=== PATIENT | male | born 1930 | race Caucasian/White ===

== ENCOUNTER 2016-12-12 16:15 | Emergency (ER) | payer OTHER ==
[~2016-12-12] VITALS: Ht 182.9 cm; Wt 109.0 kg
[~2016-12-12 16:15] MED LIST: ACET-1256 PO; ASPEC81 PO; CHOL100010 PO; DICL1GEL12; DICL1GEL12 TOP; DOCU100C PO; DONE10TA12 PO; HYDR-5688 PO; LEUP1INJ INJ; LEUP30IN3; LISI-461 PO; MEMA1CAP7 PO; MULTCAP31 PO; OMEG10007 PO; ONDA4TAB10 SL; PRLSR20 PO; SIMV20TA2 PO; TPRSR50 PO; VITA1TAB4 PO; [UNRECOGNIZED DRUG - CODE]
[2016-12-12 16:21] VITALS: TEMP 36.9; Ht 182.9 cm; Wt 109.0 kg
--- NOTE | 2016-12-12 17:06 | EMERGENCY ROOM VISIT NOTE ---
History Report prepared by Jaciibeagle: Clemente Ponce Under the Supervision of: Dr. Lewis Zamorano M.D. First contact with patient: 16:48 Chief Complaint: FALL Stated Complaint: FALL. LACERATION TO BACK OF HEAD History of Present Illness The patient is an 86 year old male who presents to the Emergency Room via ALS after a fall that occurred prior to arrival. Per patient's , the patient was at his doctor's office. When the patient left the office, he was trying to walk down a few steps when the wind blew and knocked him off balance. His tried to hold him up, but was unable to prevent the fall. The patient hit his head during the fall. He complains of some discomfort at the back of his head where he has a laceration. The patient was incontinent after the fall. The patient has also been complaining of knee pain. He was supposed to get his knees x-rayed after his appointment this morning. However, he fell before he made it to the next appointment. Source of History: patient, spouse/significant other Onset: prior to arrival Position: head Associated Symptoms: + urinary symptoms (urinary incontinence) Note: Other associated symptoms: hit his head during fall, laceration to head, pain by back of head, knee pain Review of Systems All systems have been listed, reviewed, and are negative other than those previously mentioned. Please see Additional Medical History Sheet. Past Medical & Surgical Medical Problems: (1) Alzheimer's disease (2) Aortic stenosis (3) Atrial fibrillation (4) Pre-syncope (5) Prostate cancer Family History No pertinent family history Social History Smoking Status: Never Smoker Drug Use: none Marital Status: Occupation Status: employed Current/Historical Medications Scheduled Aspirin Enteric Coated (Ecotrin Or Generic), 81 MG PO DAILY Calcium & Phosphorus W/ Vitami (Calcium Gummies), 1 TAB PO DAILY Cholecalciferol (D 5000), 5,000 UNITS PO DAILY Donepezil Hydrochloride (Aricept), 10 MG PO HS Fish Oil ([employer]-3), 1-2 CAP PO DAILY Leuprolide Acetate (6 Month) (Lupron Depot), 1 DOSE INJ [id number] Lisinopril (Lisinopril), 10 MG PO QAM Memantine Hcl (Namenda Xr), 28 MG PO HS Metoprolol Succ (Toprol Xl) (Toprol-Xl), 50 MG PO BID Multiple Vitamins W/ Minerals (Multi Adult Gummies), 2 TABS PO DAILY Omeprazole (Prilosec), 20 MG PO DAILY Simvastatin (Zocor), 20 MG PO QPM Scheduled PRN Acetaminophen (Tylenol), 2 TAB PO Q6 PRN for Pain or Fever Diclofenac Sodium (Topical) (Voltaren 1% Top Gel), 1 APPLN TOP QID PRN for KNEE DISCOMFORT Docusate Sodium (Stool Softener), 100-200 MG PO HS PRN for Constipation Hydrocodone/Acetaminophen 5MG/325MG ([place] 5MG/325MG), 1 TAB PO TID PRN for unkn Allergies Coded Allergies: Clarithromycin (Verified Allergy, Intermediate, rash in mouth, 12/12/16) Physical Exam Vital Signs Date Time Temp Pulse Resp B/P Pulse Ox O2 Delivery O2 Flow Rate FiO2 12/12/16 19:40 80 16 194/96 97 Room Air 12/12/16 18:15 68 18 183/88 98 Room Air 12/12/16 16:21 36.9 69 20 198/85 93 Room Air Physical Exam GENERAL: Patient awake, alert, oriented x 3. Patient follows commands. Patient does not appear toxic. Patient is adequately hydrated and well- nourished. SKIN: No erythema, pallor, cyanosis or rash HEENT: 4 cm laceration to right occiput, pupils equal, reactive to light and accommodation. Ears normal. Oral cavity and posterior pharynx appear normal. Neck: Supple, nontender. No step-offs noted. LUNGS: Clear to auscultation. No wheezes, no rales, no rhonchi. HEART: Grade 3/6 systolic murmur noted. No gallops. No rubs ABDOMEN: Soft, nontender. EXTREMITIES: Old scar on left knee, moves both knees well. No pedal or pretibial edema. No calf or thigh tenderness. NEUROLOGIC: Cranial nerves II-XII within normal limits. No gross motor sensory function deficits. No hemotympanum, ferraro's sign or raccoon's sign. Medical Decision & Procedures ER Provider Diagnostic Interpretation: Radiology results as stated below per my review and radiologist interpretation: RIGHT KNEE 2 VIEWS CLINICAL HISTORY: Right knee pain. FINDINGS: AP and crosstable lateral views of the right knee are obtained. No prior studies are available for comparison at the time of dictation. The skeletal structures are osteopenic. There is no radiographic evidence of fracture. Advanced tricompartmental degenerative joint space narrowing is noted. There are large marginal osteophytes as well as patellar enthesophytes. A calcified fabella is observed. There is chondrocalcinosis of the medial and lateral compartments. A small joint effusion is identified. Soft tissues swelling is seen around the knee. There is advanced atherosclerotic calcification of the popliteal artery. IMPRESSION: 1. Soft tissue edema and joint effusion with no radiographic evidence of fracture. 2. Osteopenia, advanced arthritic change, and chondrocalcinosis as above. Electronically signed by: Dre Sanders M.D. 12/12/2016 7:10 PM Dictated Date/Time: 12/12/2016 7:08 PM LEFT KNEE 2 VIEWS CLINICAL HISTORY: Left knee pain. FINDINGS: AP and crosstable lateral views of the left knee are obtained. No prior studies are available for comparison at the time of dictation. The skeletal structures are osteopenic. There is no radiographic evidence of fracture. Advanced tricompartmental degenerative joint space narrowing is noted. There are large marginal osteophytes as well as patellar enthesophytes. A calcified fabella is observed. There is chondrocalcinosis of the medial and lateral compartments. No significant joint effusion is identified. Soft tissues swelling is seen around the knee. There is advanced atherosclerotic calcification of the popliteal artery. IMPRESSION: 1. Soft tissue swelling with no radiographic evidence of fracture. 2. Osteopenia, advanced arthritic change, and chondrocalcinosis as above. Electronically signed by: Dre Sanders M.D. 12/12/2016 7:11 PM Dictated Date/Time: 12/12/2016 7:[address] SCAN OF THE BRAIN WITHOUT IV CONTRAST CLINICAL HISTORY: Fall. Head injury. COMPARISON STUDY: CT of the brain dated 09/10/2015. TECHNIQUE: Unenhanced axial CT scan of the brain is performed from the vertex to the skull base. The examination is degraded by motion artifact. CT DOSE: 1285.67 mGy.cm FINDINGS: Brain parenchyma: There are age-related involutional changes noting mild subcortical and periventricular microangiopathic change. There is no hemorrhage, mass effect, or evidence of acute territorial ischemia by CT criteria. Yepez-white matter is preserved. No extra-axial fluid collection is seen. Ventricles, sulci, cisterns: Prominent secondary to involutional change. Intracranial vasculature: There is atherosclerotic calcification of the cavernous carotid and vertebral arteries. Calvarium: The skeletal structures are osteopenic. There is no depressed calvarial fracture. Soft tissues: There is a mild right parietal scalp contusion. There is also suboccipital scalp contusion. Sinuses and mastoids: The visualized paranasal sinuses are clear. The mastoid air cells are well pneumatized. Orbits: The bony orbits are grossly intact. IMPRESSION: 1. There is no hemorrhage, mass effect, or evidence of acute territorial ischemia by CT criteria. 2. Right parietal and occipital scalp contusions. No depressed calvarial fracture is seen. Electronically signed by: Dre Sanders M.D. 12/12/2016 6:07 PM Dictated Date/Time: 12/12/2016 6:[address] SCAN OF THE CERVICAL SPINE CLINICAL HISTORY: Trauma. Fall. COMPARISON STUDY: CT scan of cervical spine dated 08/19/2015. TECHNIQUE: CT scan of the cervical spine is performed from the skull base to the upper thoracic spine. Images are reviewed in the axial, sagittal, and coronal planes. IV contrast was not administered for this examination. CT DOSE: Reported separately under the concurrently performed CT scan of the brain. FINDINGS: Skeletal structures: The skeletal structures are osteopenic. There is no evidence of fracture or subluxation involving the cervical spine. Vertebral body height and alignment are maintained. There is straightening of the cervical lordosis. The odontoid process and lateral masses are intact. The atlantoaxial articulation is preserved noting productive degenerative change with bony sclerosis and narrowing of the interval. The spinous processes appear intact. There is advanced multilevel cervical spondylosis. Uncovertebral and facet arthropathy contribute to neural foraminal stenosis at most levels. Intervertebral discs: Advanced degenerative disc space narrowing is seen at C5-C6, C6-C7, and C7-T1. Central canal: Posterior disc osteophyte complexes from C4 -C5 through C7-T1 likely contribute to acquired compromise of the central canal. Soft tissues: The prevertebral and paraspinous soft tissues are within normal limits. A 1.5 cm nodule is noted in the left posterior thyroid lobe. Atherosclerotic calcification is noted in the carotid bulbs. Calvarium: The visualized calvarium at the skull base appears intact. Brain parenchyma: Partially visualized brain parenchyma the skull base is within normal limits noting age-related involutional change. Sinuses and mastoids: The visualized paranasal sinuses are clear. The mastoid air cells are well pneumatized. Lung apices: Clear as visualized. IMPRESSION: 1. There is no evidence of fracture or subluxation involving the cervical spine. 2. Osteopenia and spondylotic change as above. Electronically signed by: Dre Sanders M.D. 12/12/2016 6:11 PM Dictated Date/Time: 12/12/2016 6:04 PM Laboratory Results 12/12/16 17:40 12/12/16 17:40 Test 12/12/16 17:40 Red Blood Count 3.84 M/uL (4.7-6.1) Mean Corpuscular Volume 90.9 fL (80-100) Mean Corpuscular Hemoglobin 30.7 pg (25-34) Mean Corpuscular Hemoglobin Concent 33.8 g/dl (32-36) RDW Standard Deviation 42.0 fL (36.4-46.3) RDW Coefficient of Variation 12.6 % (11.5-14.5) Mean Platelet Volume 8.9 fL (7.4-10.4) Anion Gap 5.0 mmol/L (3-11) Est Creatinine Clear Calc Drug Dose 65.8 ml/min Estimated GFR () 78.5 Estimated GFR (Non- 67.7 BUN/Creatinine Ratio 16.4 (10-20) Calcium Level 9.0 mg/dl (8.5-10.1) Troponin I < 0.015 ng/ml (0-0.045) Laboratory results as stated above per my review. Procedure Scalp Laceration Repair with Alivia Procedure: Wound was cleaned. Edges were approximated with 4 alivia. Patient tolerated procedure well. ECG Indication: other Rate (beats per minute): 68 Rhythm: sinus rhythm Findings: 1st degree AV block, no acute ischemic change, no ectopy ED Course 1650: Past medical records reviewed. The patient was evaluated in room B2. A complete history and physical examination was performed. 1740: At this time, I reevaluated the patient and he was resting. 1846: At this time, I performed a procedure on the patient to staple his head laceration. See procedure note for more details. 2000: Upon reevaluation, the patient appeared to have improvement of his symptoms. I discussed today's findings with him. He verbalized agreement of the treatment plan. The patient was discharged home. Medical Decision Differential diagnoses include scalp laceration, closed head injury, mechanical fall, metabolic disorder, arrhythmia, or anemia. Multiple labs, EKG and imaging were obtained. CT of his head and neck reveal no acute injuries. Patient does not have evidence of an intracranial injury. He does have a scalp laceration that was repaired with alivia. The patient had also been complaining of knee pain and therefore both knees were x-rayed revealing significant degenerative changes. The patient does not have significant metabolic problems. His blood pressure is elevated but he has not yet taken his evening meds. The patient was felt safe to return home. Impression Primary Impression: Scalp laceration Additional Impressions: Fall Degenerative joint disease Dementia Scribe Attestation The scribe's documentation has been prepared under my direction and personally reviewed by me in its entirety. I confirm that the note above accurately reflects all work, treatment, procedures, and medical decision making performed by me. Departure Information Dispostion Home / Self-Care Referrals Dionna Mcduffie M.D. (PCP) Forms HOME CARE DOCUMENTATION FORM, IMPORTANT VISIT INFORMATION Patient Instructions My [facility] Additional Instructions Leave the bandage on your head in place until tomorrow morning. Return here in approximately one week to have the alivia removed. Continue all of your current medications as prescribed. Problem Qualifiers
[2016-12-12 17:54] LABS: HEMATOCRIT 34.9 % (42-52); MEAN CELL VOLUME 90.9 fL (80-100); MEAN CORPUSCULAR HEMOGLOBIN 30.7 pg (25-34); MEAN CORPUSCULAR HGB CONC 33.8 g/dl (32-36); MEAN PLATELET VOLUME 8.9 fL (7.4-10.4); PLATELET COUNT 129 K/uL (130-400); RED BLOOD COUNT 3.84 M/uL (4.7-6.1); WHITE BLOOD COUNT 5.55 K/uL (4.8-10.8)
--- NOTE | 2016-12-12 18:08 | DIAGNOSTIC IMAGING REPORT ---
CT SCAN OF THE BRAIN WITHOUT IV CONTRAST CLINICAL HISTORY: Fall. Head injury. COMPARISON STUDY: CT of the brain dated 09/10/2015. TECHNIQUE: Unenhanced axial CT scan of the brain is performed from the vertex to the skull base. The examination is degraded by motion artifact. CT DOSE: 1285.67 mGy.cm FINDINGS: Brain parenchyma: There are age-related involutional changes noting mild subcortical and periventricular microangiopathic change. There is no hemorrhage, mass effect, or evidence of acute territorial ischemia by CT criteria. Yepez-white matter is preserved. No extra-axial fluid collection is seen. Ventricles, sulci, cisterns: Prominent secondary to involutional change. Intracranial vasculature: There is atherosclerotic calcification of the cavernous carotid and vertebral arteries. Calvarium: The skeletal structures are osteopenic. There is no depressed calvarial fracture. Soft tissues: There is a mild right parietal scalp contusion. There is also suboccipital scalp contusion. Sinuses and mastoids: The visualized paranasal sinuses are clear. The mastoid air cells are well pneumatized. Orbits: The bony orbits are grossly intact. IMPRESSION: 1. There is no hemorrhage, mass effect, or evidence of acute territorial ischemia by CT criteria. 2. Right parietal and occipital scalp contusions. No depressed calvarial fracture is seen. Electronically signed by: Dre Sanders M.D. 12/12/2016 6:07 PM Dictated Date/Time: 12/12/2016 6:05 PM
--- NOTE | 2016-12-12 18:12 | DIAGNOSTIC IMAGING REPORT ---
CT SCAN OF THE CERVICAL SPINE CLINICAL HISTORY: Trauma. Fall. COMPARISON STUDY: CT scan of cervical spine dated 08/19/2015. TECHNIQUE: CT scan of the cervical spine is performed from the skull base to the upper thoracic spine. Images are reviewed in the axial, sagittal, and coronal planes. IV contrast was not administered for this examination. CT DOSE: Reported separately under the concurrently performed CT scan of the brain. FINDINGS: Skeletal structures: The skeletal structures are osteopenic. There is no evidence of fracture or subluxation involving the cervical spine. Vertebral body height and alignment are maintained. There is straightening of the cervical lordosis. The odontoid process and lateral masses are intact. The atlantoaxial articulation is preserved noting productive degenerative change with bony sclerosis and narrowing of the interval. The spinous processes appear intact. There is advanced multilevel cervical spondylosis. Uncovertebral and facet arthropathy contribute to neural foraminal stenosis at most levels. Intervertebral discs: Advanced degenerative disc space narrowing is seen at C5-C6, C6-C7, and C7-T1. Central canal: Posterior disc osteophyte complexes from C4 -C5 through C7-T1 likely contribute to acquired compromise of the central canal. Soft tissues: The prevertebral and paraspinous soft tissues are within normal limits. A 1.5 cm nodule is noted in the left posterior thyroid lobe. Atherosclerotic calcification is noted in the carotid bulbs. Calvarium: The visualized calvarium at the skull base appears intact. Brain parenchyma: Partially visualized brain parenchyma the skull base is within normal limits noting age-related involutional change. Sinuses and mastoids: The visualized paranasal sinuses are clear. The mastoid air cells are well pneumatized. Lung apices: Clear as visualized. IMPRESSION: 1. There is no evidence of fracture or subluxation involving the cervical spine. 2. Osteopenia and spondylotic change as above. Electronically signed by: Dre Sanders M.D. 12/12/2016 6:11 PM Dictated Date/Time: 12/12/2016 6:04 PM
[2016-12-12 18:13] LABS: BLOOD UREA NITROGEN 16 mg/dl (7-18); BUN/CREATININE RATIO 16.4 (10-20); CARBON DIOXIDE 31 mmol/L (21-32); CHLORIDE 100 mmol/L (98-107); CREATININE 0.99 mg/dl (0.60-1.40); GLUCOSE 115 mg/dl (70-99); POTASSIUM 4.6 mmol/L (3.5-5.1); SODIUM 136 mmol/L (136-145)
--- NOTE | 2016-12-12 19:11 | DIAGNOSTIC IMAGING REPORT ---
RIGHT KNEE 2 VIEWS CLINICAL HISTORY: Right knee pain. FINDINGS: AP and crosstable lateral views of the right knee are obtained. No prior studies are available for comparison at the time of dictation. The skeletal structures are osteopenic. There is no radiographic evidence of fracture. Advanced tricompartmental degenerative joint space narrowing is noted. There are large marginal osteophytes as well as patellar enthesophytes. A calcified fabella is observed. There is chondrocalcinosis of the medial and lateral compartments. A small joint effusion is identified. Soft tissues swelling is seen around the knee. There is advanced atherosclerotic calcification of the popliteal artery. IMPRESSION: 1. Soft tissue edema and joint effusion with no radiographic evidence of fracture. 2. Osteopenia, advanced arthritic change, and chondrocalcinosis as above. Electronically signed by: Dre Sanders M.D. 12/12/2016 7:10 PM Dictated Date/Time: 12/12/2016 7:08 PM
--- NOTE | 2016-12-12 19:12 | DIAGNOSTIC IMAGING REPORT ---
LEFT KNEE 2 VIEWS CLINICAL HISTORY: Left knee pain. FINDINGS: AP and crosstable lateral views of the left knee are obtained. No prior studies are available for comparison at the time of dictation. The skeletal structures are osteopenic. There is no radiographic evidence of fracture. Advanced tricompartmental degenerative joint space narrowing is noted. There are large marginal osteophytes as well as patellar enthesophytes. A calcified fabella is observed. There is chondrocalcinosis of the medial and lateral compartments. No significant joint effusion is identified. Soft tissues swelling is seen around the knee. There is advanced atherosclerotic calcification of the popliteal artery. IMPRESSION: 1. Soft tissue swelling with no radiographic evidence of fracture. 2. Osteopenia, advanced arthritic change, and chondrocalcinosis as above. Electronically signed by: Dre Sanders M.D. 12/12/2016 7:11 PM Dictated Date/Time: 12/12/2016 7:10 PM
[2016-12-12 19:40] VITALS: BP 194/96; PULSE 80; O2SAT 97
[2016-12-12] MEDS ORDERED: CHOLCAP10 PO (19:42)
[2016-12-12] MEDS ORDERED: CALC1CHW47 PO (19:42)
[2016-12-12] MEDS ORDERED: METO50TA7 PO (19:42)
[2016-12-12] MEDS ORDERED: MULT1CHW37 PO (19:42)
[2016-12-12] MEDS ORDERED: ASPI81TA21 PO (19:42)
[2016-12-12] MEDS ORDERED: LEUP1INJ6 INJ (19:42)
[2016-12-12] MEDS ORDERED: LISI-461 PO (19:42)
== END 2016-12-12 20:18 | disposition home or self-care (01) ==
LOC: EDBD 16:15 → C.EDB 16:16
DX: S01.01XA Laceration without foreign body of scalp, initial encounter (principal); W10.9XXA Fall (on) (from) unspecified stairs and steps, initial encounter; Y92.531 Health care provider office as the place of occurrence of the external cause; W22.09XA Striking against other stationary object, initial encounter; I35.0 Nonrheumatic aortic (valve) stenosis; I48.91 Unspecified atrial fibrillation; Z80.42 Family history of malignant neoplasm of prostate; Z79.82 Long term (current) use of aspirin; Z79.899 Other long term (current) drug therapy; G30.9 Alzheimer's disease, unspecified; F02.80 Dementia in other diseases classified elsewhere, unspecified severity, without behavioral disturbance, psychotic disturbance, mood disturbance, and anxiety